=== PATIENT | female | born 1950 | race Caucasian/White ===

== ENCOUNTER 2024-01-21 13:49 | Emergency (ER) | payer MEDICAID ==
[2024-01-21 14:37] LABS: #Basophils 0.1 thou/uL (0.0-0.2); #Eosinphils 0.2 thou/uL (0.0-0.7); #Lymphocytes 2.5 thou/uL (1.20-3.40); #Monocytes 0.4 thou/uL (0.11-0.59); #Neutrophils 3.3 thou/uL (1.40-6.50); %Basophils 1.1 % (0.0-1.0); %Eosinophils 3.6 % (0.0-10.0); %Lymphocytes 38.4 % (21.0-51.0); %Monocytes 6.3 % (0.0-10.0); %Neutrophils 50.6 % (42.0-75.0); Hemoglobin 12.5 g/dL (12.0-16.0); Mean Corpuscular HGB CONC 30.6 g/dL (32.0-36.0); Mean Corpuscular Hemoglobin 27.8 pg (27.0-31.0); Mean Corpuscular Volume 90.8 fl (78.0-98.0); Mean Platelet Volume 8.1 fL (7.4-10.4); Platelet Count 236 10x3/uL (130-400); RBC Distribution Width 12.6 % (11.5-14.5); Red Blood Cell (RBC) Count 4.51 mill/uL (4.20-5.40); White Blood Cell (WBC) Count 6.5 10x3/uL (4.8-10.8)
[2024-01-21] MEDS ORDERED: Ipratropium/Albuterol 3 ML NEB ONE (14:41)
[2024-01-21] MEDS ORDERED: methylPREDNISolone Sod Succ/PF 125 MG/2 ML VIAL ONE (14:42)
[2024-01-21] MEDS ORDERED: Azithromycin 250 MG TAB ONE (14:42)
[2024-01-21] MEDS ORDERED: Sodium Chloride 0.9% 100 ML ONE (14:42)
[2024-01-21] MEDS ORDERED: cefTRIAXone (ROCEPHIN) 1 GM VIAL ONE (14:42)
[2024-01-21 14:47] LABS: Anion Gap 13 mmol/L (10-20); BUN (Urea Nitrogen) 12 mg/dL (9.8-20.1); Calc. Creatinine Clearance 0 mL/min (70-130); Calcium 9.7 mg/dL (7.8-10.44); Carbon Dioxide 26 mmol/L (23-31); Chloride 105 mmol/L (98-107); Estimated GFR 68; Glucose 95 mg/dL (83-110); Potassium 4.1 mmol/L (3.5-5.1); Sodium 140 mmol/L (136-145)
[2024-01-21 14:52] LABS: Troponin I Less than 0.010 ng/mL (< 0.028)
== END 2024-01-21 15:25 | disposition home or self-care (01) ==
LOC: MADERS 13:49
DX: J44.1 Chronic obstructive pulmonary disease with (acute) exacerbation (principal); F17.210 Nicotine dependence, cigarettes, uncomplicated
CPT/HCPCS: 71045; 80048; 84484; 85025; 93005; 96365; 96375; J0696; J2930; J3490; J7620

== ENCOUNTER 2024-10-31 15:45 | Emergency (ER) | payer MEDICARE, OTHER ==
[~2024-10-31 15:45] MED LIST: Iopamidol 370 76% 100 ML VIAL ONE
[2024-10-31] MEDS ORDERED: Morphine 4 MG/ML VIAL ONE (16:01)
[2024-10-31] MEDS ORDERED: Ondansetron PF 4 MG/2 ML Vial ONE (16:01)
[2024-10-31] MEDS ORDERED: Sodium Chloride 0.9% 1,000 ML ONE (16:02)
[2024-10-31 16:33] LABS: Bilirubin Small (Negative); Blood, Urine Moderate (Negative); Clarity Hazy (Clear); Glucose, Urine (Dipstick) Negative (Negative); Ketone, Urine Trace mg/dL (Negative); Leukocyte Small (Negative); Nitrite Negative (Negative); Protein, Urine (Dipstick) 30 mg/dL (Neg-Trace); Specific Gravity, Urine 1.025 (1.005-1.030); Urobilinogen 0.2 mg/dL (Less than 2); pH, Urine 5.5 (5.0-9.0)
[2024-10-31 16:36] LABS: Base Excess-Venous 1.3 mmol/L (-2.0 to 3.0); Bicarbonate (HCO3v) 25.1 mmol/L (22.0-28.0); CO2 Tension (PvCO2) 36.4 mmHg (42.0-51.0); Calcium, Ionized 1.19 mmol/L (1.15-1.33); Chloride 108 mmol/L (98-107); Hemoglobin - Calc 16.3 g/dL (12.0-16.0); Potassium 3.6 mmol/L (3.5-5.1); Sodium 146 mmol/L (138-145); T. Carbon Dioxide 26.2 mmol/L (22.0-28.0); vO2 Saturation-calc 84.9 % (60.0-85.0)
[2024-10-31 16:38] LABS: Band 5 % (5-11); Eosinophils 3 % (0-10); Hematocrit 42.7 % (36.0-47.0); Hemoglobin 13.8 g/dL (12.0-16.0); Lymphocytes 42 % (21-51); MDiff Complete? YES; Mean Corpuscular HGB CONC 32.3 g/dL (32.0-36.0); Mean Corpuscular Hemoglobin 29.8 pg (27.0-31.0); Mean Corpuscular Volume 92.3 fl (78.0-98.0); Mean Platelet Volume 8.2 fL (7.4-10.4); Monocytes 4 % (0-10); Neutrophil 46 % (42-75); Platelet Adequacy Comment Appears Adequate; Platelet Count 260 10x3/uL (130-400); RBC Distribution Width 12.6 % (11.5-14.5); Red Blood Cell (RBC) Count 4.63 mill/uL (4.20-5.40); White Blood Cell (WBC) Count 6.6 10x3/uL (4.8-10.8)
[2024-10-31 16:40] LABS: ALT (SGPT) Less than 7 U/L (Less than 34); AST (SGOT) 19 U/L (11-34); Albumin 3.5 g/dL (3.1-4.5); Alkaline Phosphatase 101 U/L (40-110); Anion Gap 17 mmol/L (10-20); BUN (Urea Nitrogen) 11 mg/dL (9.8-20.1); Bilirubin, Total 0.4 mg/dL (0.3-1.2); Calc. Creatinine Clearance 0 mL/min (70-130); Calcium 10.1 mg/dL (7.8-10.44); Carbon Dioxide 23 mmol/L (23-31); Chloride 106 mmol/L (98-107); Estimated GFR 54; Globulin 4.3 g/dL (2.4-3.5); Glucose 107 mg/dL (83-110); Potassium 3.9 mmol/L (3.5-5.1); Protein, Total 7.8 g/dL (5.8-8.1); Sodium 142 mmol/L (136-145)
[2024-10-31 16:42] LABS: Troponin I Less than 0.010 ng/mL (< 0.028)
[2024-10-31 16:44] LABS: CAUTI Indications for Culture Dysuria,urgency,freq
[2024-10-31 16:45] LABS: Bacteria/HPF 2+ HPF (None Seen); Urine Culture Reflex Yes Yes
[2024-10-31] MEDS ORDERED: Amoxicillin/Potassium Clav 875 MG TAB ONE (17:43)
== END 2024-10-31 17:59 | disposition home or self-care (01) ==
LOC: MADERS 15:45
DX: K57.32 Diverticulitis of large intestine without perforation or abscess without bleeding (principal); I71.40 Abdominal aortic aneurysm, without rupture, unspecified; F17.210 Nicotine dependence, cigarettes, uncomplicated
CPT/HCPCS: 74177; 80053; 81001; 82330; 82435; 82803; 83605; 84132; 84295; 84484; 85014; 85025; 87086; J2270; J2405; J7030; Q9967